=== PATIENT | female | born 1965 | race African-American/Black ===

== ENCOUNTER 2019-02-27 12:45 | Emergency (ER) | payer OTHER ==
[2019-02-27 16:22] LABS: ADD MAN DIFF? NO
[2019-02-27 16:26] LABS: BASOPHIL # 0.1 10^3/ul (0.0-0.1); BASOPHILS % 0.8 % (0.0-2.0); EOSINOPHILS # 0.1 10^3/ul (0.0-0.5); EOSINOPHILS % 1.2 % (0.0-7.0); HEMATOCRIT 41.9 % (37.0-47.0); HEMOGLOBIN 13.5 g/dl (12.0-16.0); LYMPHOCYTES # 2.2 10^3/ul (0.8-2.9); LYMPHOCYTES % 37.4 % (15.0-51.0); MEAN CORPUSCULAR HGB CONC 32.2 g/dl (32.0-37.0); MEAN CORPUSCULAR VOLUME 86.9 fl (82.0-101.0); MONOCYTE # 0.4 10^3/ul (0.3-0.9); MONOCYTES % 6.1 % (0.0-11.0); NEUTROPHIL # 3.2 10^3/ul (1.6-7.5); NEUTROPHILS % 54.3 % (39.0-77.0); PLATELET COUNT 308 10^3/UL (140-415); RED BLOOD COUNT 4.82 10^6/ul (4.20-5.40); RED CELL DISTRIBUTION WIDTH 13.2 % (11.5-14.5)
[2019-02-27 16:26] LABS: WHITE BLOOD COUNT 5.9 10^3/ul (4.8-10.8)
[2019-02-27] MEDS: LIDOCAINE/MYLANTA 40 ML BTL PO (16:29)
[2019-02-27] MEDS: FAMOTIDINE 20 MG TAB PO (16:29)
[2019-02-27 16:44] LABS: ALANINE AMINOTRANSFERASE 45 IU/L (13-69); ALBUMIN 4.2 g/dl (3.3-4.9); ALBUMIN/GLOBULIN RATIO 1.13; ALKALINE PHOSPHATASE 82 IU/L (42-121); ANION GAP 5 (5-13); ASPARTATE AMINO TRANSFERASE 43 IU/L (15-46); BILIRUBIN,INDIRECT 0.6 mg/dl (0-1.1); BILIRUBIN,TOTAL 0.6 mg/dl (0.2-1.3); BLOOD UREA NITROGEN 8 mg/dl (7-20); CALCIUM 10.1 mg/dl (8.4-10.2); CARBON DIOXIDE 31 mmol/L (21-31); CHLORIDE 103 mmol/L (97-110); CREATININE 0.82 mg/dl (0.44-1.00); Estimated GFR > 60 mL/min (>60); GLUCOSE 86 mg/dl (70-220); POTASSIUM 4.2 mmol/L (3.5-5.1); SODIUM 139 mmol/L (135-144); TOTAL PROTEIN 7.9 g/dl (6.1-8.1)
[2019-02-27 16:46] LABS: INR 0.89; PROTIME 12.1 Sec (11.9-14.9); PT RATIO 0.9
[2019-02-27 16:52] LABS: B-TYPE NATRIURETIC PEPTIDE 28 PG/ML (0-125)
[2019-02-27 17:07] LABS: TROPONIN-I < 0.012 ng/ml (0.000-0.120)
== END 2019-02-27 19:05 | disposition home or self-care (01) ==
LOC: E/R 12:45
DX: R07.9 Chest pain, unspecified (principal); R10.9 Unspecified abdominal pain; I10 Essential (primary) hypertension
CPT/HCPCS: 71045; 76705; 80053; 83880; 84484; 85025; 85610; 93005; 99285-25